=== PATIENT | male | born 1950 | race Caucasian/White ===

== ENCOUNTER 2017-07-21 11:00 | Outpatient (RCR) | payer MEDICARE, SELFPAY ==
--- NOTE | 2017-07-05 08:14 | HP.PTEVAL ---
Patient's Visit Information SAMANTA MORALES is a 66 year old M referred to Physical Therapy by Jama SMITH with a diagnosis of Neck Pain. Date of Evaluation: 07/05/17 Physical Therapist: Yasmin Brooke - Visit Plan Frequency: 2x /Week Duration: 3 Weeks Plan: Focuson ROM- US and manual - Subjective Subjective: Patient reports that looking forward has no pain but if he looks to left >right he gets really stiff. Lately he has noticed tingling in the top of his head on the right side. When he was going to football games and it was cold outside the pain came faster. The pain is along the upper trap along the cervical spine. No radiating pain or N/T. Worst: 8/10 Agg: turning his head. Eases: turning back to the front. Best: 0/10. when bowling he turns his head to watch and it bothers him a lot. He is only bowling and golf but neither one bothers him. Driving is hard due to not be able to turn his head. No increase in WHITE, dizziness or blurred vision. 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 X-rays taken which showed arthritis. Sleep: not disturbed- side sleeper both sides-toss/turns. PMHx: depression Meds: see list. - Objective Posture: FH, RS, Increased kyphosis- can not correct with verbal cues. Palpation: tender along upper trap and paraspinals of the cervical spine bilaterally- poor movement with PA glides. ROM:SB left:20 degrees SB: right 30 degrees Flexion: 60 Extn: 40 degrees Left: 30 degrees Right: 40 degrees. Shoulder/Elbow/Wrist: WNL. Shoulder: 4+/5 throughout First Aid Officer: Left: 80/75/80, Right: 65/70/70 - Goals Goal 1:: Patient will be I with HEP and progression Goal Time Frame: 4-6 Weeks Goal 2:: Patient will demo increased ROM by 10 degrees in all deficit areas Goal Time Frame: 4-6 Weeks Goal 3:: Patient will report 0/10 pain for 1 week with ADL's. Goal Time Frame: 4-6 Weeks - Rehabilitation Potential Physical Therapy Diagnosis: Patient presents with hypomobility- he has decreased ROM, strength and muscular endurance leading to poor posture and increased pain with ADL's. Rehabilitation Potential: Good - Anticipated Interventions Patient/Client Instruction: Educate patient on: Benefits of Fitness Program For the Purpose of:: To increase tolerance to activity/condition/position Therapeutic Exercise to Include: Strength training, Agility training, Body mechanics, Postural training, Passive ROM, Active ROM, Scapular Strength/Stabilization For the Purpose of:: To improve muscle performance and motor function Manual Therapy Techniques to Include: Passive ROM, Soft tissue mobilization For the Purpose of:: To increase ROM TENS: Yes Cryotherapy (ice pack, ice massage): Yes Thermo therapy (hot pack): Yes Ultrasound (thermal/non thermal): Yes For the Purpose of:: To decrease pain Thank you for the opportunity to evaluate your patient. For Medicare and Medicare HMO plans, please review the plan of care and approve it. It will need to be FAXED BACK to us at [phone] for Medicare purposes. Please let me know if there are questions or concerns regarding this plan of care. Physician Signature: Date:
--- NOTE | 2017-07-21 11:29 | HP.PTDCSUM ---
HP - PT D/C Summary It has been my pleasure to treat SAMANTA MORALES under orders from DR.MELDER Parish for the diagnosis of Neck Pain for a total of 6 visit(s). Discharge Date: Please see the following information for a summary of their discharge status. - Subjective Subjective: Patient reports the neck is doing good- some tightness when turning to the left. Is currently doing the exercises at home.No WHITE. 4/10 worst pain- during therapy when they are pushing through the discomfort - Objective Objective/Function: Posture: FH, RS. ROM: flexion: to chest, Extn: 40 degrees, SB Left- 40 degrees, SB Right- 35 degrees, Rot Left: 50 degrees, Rot Right: 45 degrees. Strength: WNL in all planes - Goals Goal 1:: Patient will be I with HEP and progression Goal Progress: Goal Met Goal 2:: Patient will demo increased ROM by 10 degrees in all deficit areas Goal Progress: Goal Met Goal 3:: Patient will report 0/10 pain for 1 week with ADL's. Goal Progress: Progressing - Plan Plan: Discharge to I HEP - D/C Information If there are questions or concerns regarding this patient's physical therapy, please feel free to call me at [phone]. Thank you for the referral of this patient. Sincerely, Yasmin Brooke
== END 2017-07-21 14:49 | disposition home or self-care (01) ==
LOC: PT 11:00
PROVIDERS: Family Provider Family Medicine; PCP Family Medicine; Visit Provider Family Medicine
DX: M54.2 Cervicalgia (principal)
CPT/HCPCS: 97035; 97110; 97140; 97162; 97530